=== PATIENT | female | born 2005 | race Caucasian/White ===

== ENCOUNTER 2025-10-27 15:43 | Emergency (ER) | payer BC, MEDICAID ==
[2025-10-27] MEDS ORDERED: Acetaminophen 500 MG TAB ONE (16:06)
[2025-10-27] MEDS ORDERED: Ibuprofen 800 MG TAB ONE (16:06)
== END 2025-10-27 16:51 | disposition home or self-care (01) ==
LOC: MADERS 15:43
DX: O91.22 Nonpurulent mastitis associated with the puerperium (principal)
CPT/HCPCS: 99283; J7168